=== PATIENT | female | born 1980 | race Asian ===

== ENCOUNTER 2024-03-04 14:21 | Outpatient (CLI) | payer OTHER | END 2024-03-04 23:59 | disposition home or self-care (01) | LOC: RAD 14:21 | PROVIDERS: ATTEND Student in an Organized Health Care Education/Training Program | DX: M25.521 Pain in right elbow (principal) | CPT/HCPCS: 73200 ==

== ENCOUNTER 2024-04-07 14:36 | Outpatient (CLI) | payer OTHER | END 2024-04-07 23:59 | disposition home or self-care (01) | LOC: MRI 14:36 | PROVIDERS: ATTEND Student in an Organized Health Care Education/Training Program | DX: M79.641 Pain in right hand (principal); M25.431 Effusion, right wrist; M79.601 Pain in right arm; G56.01 Carpal tunnel syndrome, right upper limb | CPT/HCPCS: 73221 ==